=== PATIENT | female | born 1970 | race Caucasian/White ===

== ENCOUNTER → 2016-12-05 | Outpatient (CLI) | payer OTHER ==
--- NOTE | 2016-12-05 14:24 | US ---
EXAMINATION TYPE: US venous doppler duplex LE DATE OF EXAM: 12/05/2016 2:05 PM COMPARISON: NONE CLINICAL HISTORY: M79.662 Left lower leg pain. Uriel horse type pain x 4 days, no swelling, no h/o dvt SIDE PERFORMED: Left VESSELS IMAGED: External Iliac Vein (EIV) Common Femoral Vein Deep Femoral Vein Greater Saphenous Vein * Femoral Vein Popliteal Vein Proximal Calf Veins (* superficial vessels) TECHNOLOGIST IMPRESSION: wnl Left Leg: Appears negative for DVT tech impression give to office @ 1406 There is satisfactory color flow, phasicity, compressibility in the venous structures above from groi n to knee in the left lower extremity. Satisfactory compression is seen in the proximal calf veins be low knee. Satisfactory color flow is seen in superficial veins. IMPRESSION: No ultrasound evidence for acute DVT in the left lower extremity.
== END | disposition home or self-care (01) ==
LOC: RADUSWWP 13:39
PROVIDERS: ATTEND Family Medicine
DX: M79.662 Pain in left lower leg (principal)

== ENCOUNTER → 2017-05-16 | Outpatient (CLI) | payer OTHER ==
--- NOTE | 2017-05-16 08:04 | US ---
EXAMINATION TYPE: US pelvis complete transvag DATE OF EXAM: 05/16/2017 COMPARISON: NONE CLINICAL HISTORY: N95.2 IRREGULAR MENSES. Heavy irregular cycles and cramping, pending hysterectomy TECHNIQUE: TA and TV Date of LMP: 04/22/2017 EXAM MEASUREMENTS: Uterus: 10.9 x 6.4 x 6.2 cm Endometrial Stripe: 1.0 cm Right Ovary: 2.8 x 2.0 x 1.7 cm Left Ovary: 3.1 x 2.4 x 2.2 cm 1. Uterus: Anteverted two probable fibroids seen, posterior fundus = 2.9cm and anterior fundus = 1 .5cm 2. Endometrium: wnl 3. Right Ovary: wnl 4. Left Ovary: dominate follicle seen =1.2cm 5. Bilateral Adnexa: wnl 6. Posterior cul-de-sac: wnl Uterus is heterogeneous in appearance and slightly prominent or bulky in size, and is anteverted in s hape. Endometrium measures up to 10 mm which is within normal limits for secretory phase of menstrual cycle. No free fluid is seen in pelvic cul-de-sac. Both ovaries are identified. No suspicious adnexal masses are seen. Transvaginal scanning shows small poorly defined hyperechoic areas in the myometrium felt to reflect intrauterine fibroids measuring up to 2.9 cm on long axis. IMPRESSION: Intrauterine fibroids are felt present
== END ==
LOC: RADUSWWP 06:57
PROVIDERS: ATTEND Family Medicine
DX: N92.5 Other specified irregular menstruation (principal); N92.1 Excessive and frequent menstruation with irregular cycle; N94.4 Primary dysmenorrhea
CPT/HCPCS: 76830; 76856

== ENCOUNTER → 2017-11-19 | Outpatient (CLI) | payer OTHER ==
--- NOTE | 2017-11-19 19:09 | MR ---
EXAMINATION TYPE: MR knee LT wo con DATE OF EXAM: 11/19/2017 COMPARISON: NONE HISTORY: Left knee pain TECHNIQUE: Multiplanar, multisequence imaging of the left knee is performed without IV contrast. FINDINGS: MEDIAL MENISCUS: Linear increased signal in the posterior horn of the medial meniscus compatible with tear. LATERAL MENISCUS: Anterior and posterior horns are intact without tear. CRUCIATE LIGAMENTS: Posterior cruciate ligament is intact. The fibers of the anterior cruciate ligame nt are not intact. COLLATERAL LIGAMENTS: The medial collateral ligament and lateral collateral ligament complex are inta ct and unremarkable. EXTENSOR MECHANISM: Visualized quadriceps and patellar tendons are intact. EFFUSION: Suprapatellar joint effusion is present. POPLITEAL CYST: No popliteal/garcia cyst. TRICOMPARTMENT SPACES: Maintained] CARTILAGE: Grade 2 to grade III chondromalacia posterior patella BONE MARROW SIGNAL: Trabecular disruption, bone marrow edema present in the proximal tibia OTHER: Some arousable ganglion cysts present posterior to the medial meniscus measuring 2.1 x 2.3 x 2 cm. Subcutaneous edema is present anterior to the patellar tendon IMPRESSION: Correlate for trauma to the proximal tibia with probable microtrabecular fractures and bone marrow ed eva, there is likely anterior cruciate ligament disruption, tear of the posterior horn the medial men iscus.
== END | disposition home or self-care (01) ==
LOC: RADMRIMAIN 17:04
PROVIDERS: ATTEND Family Medicine
DX: S83.8X2D Sprain of other specified parts of left knee, subsequent encounter (principal)

== ENCOUNTER → 2018-10-06 | Outpatient (CLI) | payer OTHER ==
--- NOTE | 2018-10-06 09:41 | XR ---
EXAMINATION TYPE: XR knee complete bilateral DATE OF EXAM: 10/06/2018 COMPARISON: NONE HISTORY: Pain TECHNIQUE: 3 views are submitted of each knee. FINDINGS: Mild narrowing of the medial compartment knee joint. No erosive changes. Osseous structures are inta ct. No acute fracture seen. IMPRESSION: 1. No acute fracture or dislocation. 2 mild osteoarthritis. If symptoms persist consider MRI.
== END ==
LOC: RADXRYALE 09:02
PROVIDERS: ATTEND Physician Assistant
DX: M17.0 Bilateral primary osteoarthritis of knee (principal)

== ENCOUNTER → 2019-03-11 | Outpatient (CLI) | payer OTHER ==
--- NOTE | 2019-03-11 13:20 | XR ---
EXAMINATION TYPE: XR Hip Complete RT DATE OF EXAM: 03/11/2019 COMPARISON: NONE HISTORY: Pain TECHNIQUE: 2 views submitted FINDINGS: There is no evidence of erosive change or acute fracture. There is hypertrophic change of the acetabu lum. There is abnormal morphology of the femoral head. Sclerotic density involving the femoral head s uggestive of a bone island. IMPRESSION: 1. No evidence of acute fracture or dislocation. 2. Right hip arthropathy correlate for femoral acetabular impingement. Recommend follow-up MRI.
--- NOTE | 2019-03-11 13:26 | XR ---
EXAM TYPE: LUMBAR SPINE X RAY SERIES COMPARISON: NONE HISTORY: Back pain TECHNIQUE: 4 views are submitted. FINDINGS: Alignment is anatomic. The pedicles are intact. The transverse processes are intact. There is no s pondylolysis or spondylolisthesis. Changes of sacroiliitis noted. Spina bifida occulta lumbosacral j unction. Facet arthropathy L4-5 and L5-S1 there is multilevel mild to moderate degenerative disc dise ase. 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 IMPRESSION: 1. Multilevel degenerative disc disease and facet arthropathy. 2. Bilateral sacroiliitis..
== END | disposition home or self-care (01) ==
LOC: RADXRYALE 10:46
PROVIDERS: ATTEND Physician Assistant Medical
DX: M51.37 Other intervertebral disc degeneration, lumbosacral region (principal); M46.97 Unspecified inflammatory spondylopathy, lumbosacral region; M46.1 Sacroiliitis, not elsewhere classified; M16.11 Unilateral primary osteoarthritis, right hip
CPT/HCPCS: 72110; 73502

== ENCOUNTER → 2019-03-23 | Outpatient (CLI) | payer OTHER ==
--- NOTE | 2019-03-23 13:34 | MR ---
EXAMINATION TYPE: MR lumbar spine wo con DATE OF EXAM: 03/23/2019 COMPARISON: Radiograph's of the lumbar spine dated 03/11/2019 HISTORY: Low back pain TECHNIQUE: Multiplanar, multisequence images of the lumbar spine were acquired. 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 The bone marrow signal is lower limits of normal throughout and should be correlated with CBC. The conus medullaris is unremarkable terminating at L2. Degenerative endplate changes seen of the superi or endplate of L2 and L4. Multilevel disc desiccation, facet arthropathy and small anterior osteophyt es are seen. L1-L2: There is a central disc herniation with 5 mm subligamentous cranial extrusion. This is superim posed on a broad-based disc bulge with mild facet arthropathy however no significant neural foraminal narrowing or spinal canal stenosis are seen. L2-L3: There is a broad-based disc bulge and facet arthropathy resulting in very minimal bilateral ne ural foraminal narrowing without spinal canal stenosis. L3-L4: There is facet arthropathy and a broad-based disc bulge resulting in mild bilateral neural for aminal narrowing without spinal canal stenosis. L4-L5: There is a left lateral annular tear and broad-based disc bulge. This results in mild to moder ate bilateral neural foraminal narrowing. There is some narrowing of the transverse dimension of the spinal canal without significant spinal canal stenosis. This is due to facet arthropathy and ligament um flavum buckling. L5-S1: There is a small left paracentral disc herniation superimposed on a broad-based disc bulge. Fa cet arthropathy is also seen creating minimal bilateral neural foraminal narrowing. IMPRESSION: 1. Central disc herniation with 5 mm subligamentous cranial disc extrusion. 2. Left lateral annular tear at L4-L5 with broad-based disc bulge and facet arthropathy resulting in mild to moderate bilateral neural foraminal narrowing. The disc material does abut the exiting L4 ner ve roots. 3. Small left paracentral disc herniation at L5-S1 with degenerative disc disease creating minimal bi lateral neural foraminal narrowing. 4. Lower limits of normal bone marrow signal throughout. With would be seen in anemia and should be c orrelated with CBC. Alternatively this can be seen in obesity or sequela chronic disease and less lik chi in myeloproliferative disorders.
--- NOTE | 2019-03-23 13:52 | MR ---
EXAMINATION TYPE: MR hip RT wo con DATE OF EXAM: 03/23/2019 COMPARISON: Right hip x-ray dated 03/11/2019 HISTORY: Right hip pain TECHNIQUE Standard multiplanar, multisequence MRI of the right hip without contrast was performed per departmental protocol. FINDINGS: The small cam deformities at the femoral head neck junction on the right is better apprecia on the x-ray of 03/11/2019 within the obliquity in acquisition however this is seen. Similarly on the left there is a small cam deformity. The femoral heads maintain a normal rounded contour. Small o steophytes are present of the femoral head and acetabulum. There is no evidence of bone marrow edema or avascular necrosis of the femoral head. No occult fracture is suspected. Given the limitation of t his nonarthrographic examination there is no gross evidence of displaced labral tear. There is thinni ng of the labrum posteriorly and inferiorly. Acetabular roof sclerosis is present. There is very mild joint space narrowing and is cephalad and medial direction of the femoral acetabular joint. Nonenlar ged superficial inguinal lymph nodes bilaterally. Bone marrow signal is overall within normal limits. Uterus appears surgically absent with follicular change of the ovaries. Pelvic floor relaxation is s een. Hip girdle musculature appears grossly unremarkable. There is no joint effusion. IMPRESSION: 1. Small cam deformities of the bilateral femoral head neck junctions are confirmed and can predispos e this patient to femoral acetabular impingement syndrome. 2. No evidence of avascular necrosis, bone marrow edema, or femoral head collapse. 3. Mild bilateral femoral acetabular arthropathy.
== END | disposition home or self-care (01) ==
LOC: RADMRIMAIN 12:08
PROVIDERS: ATTEND Physician Assistant Medical
DX: M48.061 Spinal stenosis, lumbar region without neurogenic claudication (principal); M51.26 Other intervertebral disc displacement, lumbar region; M51.27 Other intervertebral disc displacement, lumbosacral region; M51.37 Other intervertebral disc degeneration, lumbosacral region; M51.86 Other intervertebral disc disorders, lumbar region; M46.96 Unspecified inflammatory spondylopathy, lumbar region; M16.0 Bilateral primary osteoarthritis of hip; M21.952 Unspecified acquired deformity of left thigh; M21.951 Unspecified acquired deformity of right thigh
CPT/HCPCS: 72148

== ENCOUNTER → 2020-08-24 | Outpatient (CLI) | payer OTHER ==
--- NOTE | 2020-08-25 12:41 | MM ---
Reason for exam: screening (asymptomatic). Last mammogram was performed 6 years and 6 months ago. History: Family history of breast cancer in maternal aunt at age 50 and breast cancer in maternal aunt at age 60. Physical Findings: A clinical breast exam by your physician is recommended on an annual basis and results should be correlated with mammographic findings. MG Screening Mammo w CAD Bilateral CC and MLO view(s) were taken. Prior study comparison: February 12, 2014, CAD bilateral diagnostic mammogram. August 21, 2013, [facility]. The breast tissue is heterogeneously dense. This may lower the sensitivity of mammography. No significant changes when compared with prior studies. ASSESSMENT: Benign, BI-RAD 2 RECOMMENDATION: Routine screening mammogram of both breasts in 1 year.
== END | disposition home or self-care (01) ==
LOC: RADMAMWWP 09:55
PROVIDERS: ATTEND Family Medicine
DX: Z12.31 Encounter for screening mammogram for malignant neoplasm of breast (principal)
CPT/HCPCS: 77067

== ENCOUNTER → 2022-10-10 | Outpatient (CLI) | payer BC, OTHER ==
--- NOTE | 2022-10-10 09:34 | XR ---
EXAMINATION TYPE: XR cervical spine comp DATE OF EXAM: 10/10/2022 COMPARISON: NONE HISTORY: Numbness and pain TECHNIQUE: Four views are submitted. FINDINGS: The odontoid is intact. There are no compression deformities. The prevertebral soft tissue structur es are within normal limits. Moderate to severe degenerative disc disease C5-6 and C6-C7 with boiler installer ior spondylosis suspected bilateral foraminal encroachment. Mild degenerative disc disease C2-3 and C 3-C4. IMPRESSION: 1. Moderate to severe degenerative disc disease C5-6 and C6-C7 with posterior spondylosis. Suspect bi lateral foraminal encroachment. Recommend follow-up MRI.
== END | disposition home or self-care (01) ==
LOC: RADXRYALE 08:58
PROVIDERS: ATTEND Physician Assistant Medical
DX: M50.122 Cervical disc disorder at C5-C6 level with radiculopathy (principal); M47.22 Other spondylosis with radiculopathy, cervical region; R20.2 Paresthesia of skin
CPT/HCPCS: 72050

== ENCOUNTER → 2023-04-30 | Outpatient (CLI) | payer BC, OTHER ==
--- NOTE | 2023-04-30 14:51 | XR ---
EXAM TYPE: LUMBAR SPINE X RAY SERIES COMPARISON: NONE HISTORY: 03/11/2019 TECHNIQUE: 4 views are submitted. FINDINGS: Alignment is anatomic. The pedicles are intact. The transverse processes are intact. There is no s pondylolysis or spondylolisthesis. There is sclerosis of the bilateral SI joints. There is moderate degenerative disc disease lower thoracic spine and thoracolumbar junction with mild degenerative disc disease L5-S1. Congenital limbus deformity of L5. Severe facet arthropathy L4-5 an d L5-S1 with suspected foraminal encroachment. IMPRESSION: 1. Multilevel degenerative disc disease most marked below the thoracolumbar junction. 2. Severe facet arthropathy L4-L5 with suspected bilateral foraminal encroachment. Facet arthropathy is progressed from prior exam. 3. Bilateral sacroiliitis..
== END | disposition home or self-care (01) ==
LOC: RADXRYALE 09:28
PROVIDERS: ATTEND Physician Assistant Medical
DX: M51.36 Other intervertebral disc degeneration, lumbar region (principal); M47.816 Spondylosis without myelopathy or radiculopathy, lumbar region; M46.1 Sacroiliitis, not elsewhere classified
CPT/HCPCS: 72110

== ENCOUNTER → 2023-06-03 | Outpatient (CLI) | payer BC, OTHER ==
--- NOTE | 2023-06-03 15:21 | MR ---
EXAMINATION TYPE: MR cervical spine wo con DATE OF EXAM: 06/03/2023 COMPARISON: Cervical spine radiograph 10/10/2022 HISTORY: Neck pain, stiffness, headaches, right arm/fingers tingling TECHNIQUE: Multiplanar, multisequence images of the cervical spine were acquired without contrast. FINDINGS: Cervical segments are intact. There is normal alignment. Cervical spinal cord is of normal signal. Craniovertebral junction relationships are within normal limits. C2-C3: No disc bulge/herniation or protrusion. No Canal stenosis. Foramina are patent bilaterally. C3-C4: Broad-based disc bulge with mild effacement of the anterior thecal sac. Uncovertebral joint hy pertrophy with mild left neural foraminal stenosis. The right neural foramen is patent. C4-C5: No disc bulge/herniation or protrusion. No Canal stenosis. Foramina are patent bilaterally. C5-C6: Posterior disc ossify complex with mild effacement of the anterior thecal sac. Uncovertebral j oint hypertrophy demonstrated with mild to moderate bilateral neural foraminal stenosis. C6-C7: Broad-based disc bulge with minimal effacement of the anterior thecal sac. Uncovertebral joint hypertrophy with mild to moderate left neural foraminal stenosis. The right neural foramen is patent . C7-T1: No disc bulge/herniation or protrusion. No Canal stenosis. Foramina are patent bilaterally. IMPRESSION: 1. No disc herniation. 2. Multilevel degenerative disc disease and uncovertebral joint hypertrophy as described above. This is most prominent at C3-C4, C5-C6, and C6-C7.
== END | disposition home or self-care (01) ==
LOC: RADMRIMAIN 14:39
PROVIDERS: ATTEND Family Medicine
DX: M50.11 Cervical disc disorder with radiculopathy, high cervical region (principal); M99.71 Connective tissue and disc stenosis of intervertebral foramina of cervical region
CPT/HCPCS: 72141

== ENCOUNTER → 2024-08-31 | Outpatient (CLI) | payer BC, OTHER ==
--- NOTE | 2024-08-31 11:10 | XR ---
EXAMINATION TYPE: XR Hip Complete LT DATE OF EXAM: 08/31/2024 10:46 AM COMPARISON: 08/31/2024 CLINICAL INDICATION: Female, 53 years old with history of [id number] LT HIP PAIN; [facility] TECHNIQUE: XR Hip Complete LT; Frontal and lateral views FINDINGS: No evidence for acute process, joint dislocation or significant soft tissue swelling. Osteo phyte formation of the superior acetabulum of the hip. There is mild joint space narrowing. IMPRESSION: 1. No evidence for acute process. 2. Mild hip osteoarthrosis. [facility], , 08/31/2024 11:08 AM
== END | disposition home or self-care (01) ==
LOC: RADXRYALE 10:26
PROVIDERS: ATTEND Physician Assistant Medical
DX: M16.12 Unilateral primary osteoarthritis, left hip (principal)
CPT/HCPCS: 73502

== ENCOUNTER → 2025-01-15 | Outpatient (CLI) | payer BC, OTHER ==
--- NOTE | 2025-01-15 08:01 | MM ---
Reason for Exam: Screening (asymptomatic). Last mammogram was performed 4 year(s) and 4 month(s) ago. Patient History: Menarche at age 15. First Full-Term at age 28. Hysterectomy at age 47. Maternal aunt had breast cancer, age 50. Maternal aunt had breast cancer, age 60. Risk Values: Lyn 5 year model risk: 1.2%. NCI Lifetime model risk: 8.5%. Prior Study Comparison: 08/21/2013 Bilateral Diagnostic Mammogram, [facility]. 02/12/2014 Bilateral Diagnostic Mammogram, [facility]. 08/24/2020 Bilateral Screening Mammogram, [facility]. Tissue Density: The breasts are heterogeneously dense, which may obscure small masses. Findings: Analyzed By CAD. There is no suspicious group of microcalcifications or new suspicious mass in either breast. Overall Assessment: Benign, BI-RAD 2 Management: Screening Mammogram of both breasts in 1 year. . Patient should continue monthly self-breast exams. A clinical breast exam by your physician is recommended on an annual basis. This exam should not preclude additional follow-up of suspicious palpable abnormalities. Note on Lyn scores and lifetime risk: 1. A Lyn score greater than 3% is considered moderate risk. If this is the case, consider specialist referral to assess eligibility for a risk reducing agent. 2. If overall lifetime risk for the development of breast cancer is 20% or higher, the patient may qualify for future screening with alternating mammogram and breast MRI. [facility], , 01/15/2025 7:58 AM. Electronically signed and approved by: Kg Hall M.D. Radiolog[facility]
== END | disposition home or self-care (01) ==
LOC: RADMAMWWP 07:14
PROVIDERS: ATTEND Family Medicine
DX: Z12.31 Encounter for screening mammogram for malignant neoplasm of breast (principal); R92.333 Mammographic heterogeneous density, bilateral breasts; Z80.3 Family history of malignant neoplasm of breast
CPT/HCPCS: 77063; 77067